=== PATIENT | female | born 1960 | race Caucasian/White ===

== ENCOUNTER → 2020-10-10 | Outpatient (CLI) | payer BC, OTHER ==
[~2020-10-10] MED LIST: ALL DAY ALLERGY10 MG PO; AMBIEN10 MG PO; AMLODIPINE BESYL5 MG PO; CELECOXIB200 MG PO; ELIQUIS 2.5 MG2.5 MG PO; LEVOTHYROXINE88 MCG PO; LIPITOR TAB 1010 MG PO; LISINOPRIL20 MG PO; MELATONIN10 MG PO; MELATONIN3 MG PO; MOBIC7.5 MG PO; OMEPRAZOLE40 MG PO; PERCOCET 10-321 EACH PO; PRINIVIL20 MG PO; SENOKOT-S TABL1 EACH PO; SYNTHROID75 MCG PO; VITAMIN D2 PO; VITAMIN D21250 MCG PO
== END ==
LOC: MAMO 07-04 15:00
DX: Z12.31 Encounter for screening mammogram for malignant neoplasm of breast (principal); Z78.0 Asymptomatic menopausal state
CPT/HCPCS: 77063; 77067

== ENCOUNTER → 2021-03-27 | Outpatient (CLI) | payer BC ==
[~2021-03-27] MED LIST changes: +AUGMENTIN 875-1 EACH PO; +ELIQUIS2.5 MG PO; +ENDOCET 7.5-321 EACH PO
[2021-03-27 13:13] LABS: HEMOGLOBIN 10.7 gm/dl (12.3-15.3); RED BLOOD COUNT 4.86 M/UL (4.00-5.10); WHITE BLOOD COUNT 6.1 K/UL (4.5-11.0)
== END ==
LOC: OPSV2 12:30
PROVIDERS: Orthopaedic Surgery
DX: Z01.818 Encounter for other preprocedural examination (principal); Z88.2 Allergy status to sulfonamides; M17.12 Unilateral primary osteoarthritis, left knee; I10 Essential (primary) hypertension; R94.31 Abnormal electrocardiogram [ECG] [EKG]
CPT/HCPCS: 36415; 80048; 85027; 87081; 87086; 93005

== ENCOUNTER → 2021-04-09 | Outpatient (CLI) | payer BC | LOC: LAB 13:20 | DX: Z01.812 Encounter for preprocedural laboratory examination (principal); M17.12 Unilateral primary osteoarthritis, left knee; Z88.2 Allergy status to sulfonamides | CPT/HCPCS: 36415; 86850; 86900; 86901 ==

== ENCOUNTER 2021-04-10 07:26 | Inpatient (IN) | payer BC ==
[~2021-04-10] VITALS: Ht 157.5 cm; Wt 109.3 kg
[~2021-04-10 07:26] MED LIST changes: -AUGMENTIN 875-1 EACH PO; -ELIQUIS2.5 MG PO; -ENDOCET 7.5-321 EACH PO
[2021-04-10] MEDS ORDERED: ENDOCET 7.5-321 EACH PO (12:00)
[2021-04-10] MEDS ORDERED: ELIQUIS2.5 MG PO (12:00)
[2021-04-11 03:43] LABS: RED BLOOD COUNT 3.98 M/UL (4.00-5.10); WHITE BLOOD COUNT 10.6 K/UL (4.5-11.0)
[2021-04-11 04:15] LABS: BUN/CREATININE RATIO 11 (0-10)
[2021-04-12 06:55] LABS: HEMOGLOBIN 8.5 gm/dl (12.3-15.3); RED BLOOD COUNT 3.8 M/UL (4.00-5.10); WHITE BLOOD COUNT 8.7 K/UL (4.5-11.0)
[2021-04-12 07:06] LABS: BUN/CREATININE RATIO 10 (0-10)
--- NOTE | 2021-04-12 12:22 | NUR ---
ATTEMPTED TO PULL HEMOVAC DRAIN PER ORDER. ATTEMPTED BY TWO NURSES BUT RESISTANCE MET. NOTIFIED DR. ARANDA WHOM ATTEMPTED TO PULL HEMOVAC WITHOUT COMPLETE SUCCESS. PT TO GO TO OR 04/13/21 FOR REMOVAL OF DRAIN. PATIENT AND FAMILY AWARE OF SITUTATION AND PROCEDURE.
[2021-04-13 02:57] LABS: HEMOGLOBIN 8.2 gm/dl (12.3-15.3); RED BLOOD COUNT 3.63 M/UL (4.00-5.10); WHITE BLOOD COUNT 8.3 K/UL (4.5-11.0)
--- NOTE | 2021-04-13 03:00 | NUR ---
PATIENT BECAME VERY SOB MICHELLE 0145 WITH SATS IN THE 70S. PLACED ON 6L NC WITH SATS STILL MID 80S. PATIENT THEN PLACED ON VENTI AT 50% WITH SATS AT 88-90%. NARCAN ADMINISTERED WITH NO INCREASE IN O2 SATS. PATIENT IS NOT STRUGGLING TO BREATH, ONLY SHALLOW BREATHS NOTED. DR LAZO NOTIFIED AND ORDER FOR EKG, CARDIACS, CT PE PROTOCOL; AND COVID SWAB ORDERED.
[2021-04-13 03:16] LABS: BUN/CREATININE RATIO 8 (0-10)
--- NOTE | 2021-04-13 04:48 | NUR ---
SATS 99% ON 50% VENTI. TURNED DOWN TO 35% VENTI.
[2021-04-14 06:24] LABS: WHITE BLOOD COUNT 7.5 K/UL (4.5-11.0)
[2021-04-14 06:57] LABS: BUN/CREATININE RATIO 18 (0-10)
[2021-04-14 07:30] LABS: HEMOGLOBIN 7.4 gm/dl (12.3-15.3); RED BLOOD COUNT 3.17 M/UL (4.00-5.10)
[2021-04-15 05:12] LABS: WHITE BLOOD COUNT 6.4 K/UL (4.5-11.0)
[2021-04-15 05:29] LABS: BUN/CREATININE RATIO 19 (0-10)
[2021-04-15 05:50] LABS: HEMOGLOBIN 6.2 gm/dl (12.3-15.3); RED BLOOD COUNT 2.71 M/UL (4.00-5.10)
--- NOTE | 2021-04-15 13:42 | NUR ---
PATIENT HAD HEMEGLOBIN OF 6.[address] BARRON ORDERD TRANSFUSION. PATIENT HAS RECIEVED [address] LAZO AND [address] LOMBARDI ARE AWARE. LABS FOR HEMEGLOBIN RECHECK SCEDULED FOR 2 HOURS POST AND AT [address] LOMBARDI ORDERED THE ELEQUIS HELD. DRESSING IS CLEAN AND DRY. WILL CONTINUE TO MONITOR.
[2021-04-15 16:08] LABS: HEMOGLOBIN 7.8 gm/dl (12.3-15.3)
[2021-04-15 20:55] LABS: HEMOGLOBIN 7.9 gm/dl (12.3-15.3)
[2021-04-16 05:04] LABS: HEMOGLOBIN 7.9 gm/dl (12.3-15.3); WHITE BLOOD COUNT 6.5 K/UL (4.5-11.0)
[2021-04-16 05:06] LABS: RED BLOOD COUNT 3.48 M/UL (4.00-5.10)
[2021-04-16 05:27] LABS: BUN/CREATININE RATIO 11 (0-10)
[2021-04-16] MEDS ORDERED: AUGMENTIN 875-1 EACH PO (15:33)
== END 2021-04-16 17:06 | disposition home or self-care (01) | DRG 907 ==
LOC: M/S 07:26 → OR 07:26 → EDSTATUS 11:30 → M/S 15:25 → OR 04-12 14:04 → M/S 04-12 14:04
PROVIDERS: Internal Medicine; ADMIT Orthopaedic Surgery
PROC: 0SRD0J9 Replacement of Left Knee Joint with Synthetic Substitute, Cemented, Open Approach (ICD-10-PCS; principal; 2021-04-10 11:30)
PROC: 0SCD0ZZ Extirpation of Matter from Left Knee Joint, Open Approach (ICD-10-PCS; 2021-04-13)
PROC: 30233N1 Transfusion of Nonautologous Red Blood Cells into Peripheral Vein, Percutaneous Approach (ICD-10-PCS; 2021-04-15)
DX: T81.590A Other complications of foreign body accidentally left in body following surgical operation, initial encounter (principal); J69.0 Pneumonitis due to inhalation of food and vomit; J96.01 Acute respiratory failure with hypoxia; Z68.41 Body mass index [BMI] 40.0-44.9, adult; D62 Acute posthemorrhagic anemia; M17.12 Unilateral primary osteoarthritis, left knee; Y83.9 Surgical procedure, unspecified as the cause of abnormal reaction of the patient, or of later complication, without mention of misadventure at the time of the procedure; E66.01 Morbid (severe) obesity due to excess calories; I10 Essential (primary) hypertension; E78.5 Hyperlipidemia, unspecified; K21.9 Gastro-esophageal reflux disease without esophagitis; F41.9 Anxiety disorder, unspecified; E05.90 Thyrotoxicosis, unspecified without thyrotoxic crisis or storm; Z20.822 Contact with and (suspected) exposure to COVID-19; K44.9 Diaphragmatic hernia without obstruction or gangrene; E03.9 Hypothyroidism, unspecified; Z82.49 Family history of ischemic heart disease and other diseases of the circulatory system; Z79.890 Hormone replacement therapy; Z88.2 Allergy status to sulfonamides; Z88.8 Allergy status to other drugs, medicaments and biological substances; Z98.42 Cataract extraction status, left eye; Z98.41 Cataract extraction status, right eye
CPT/HCPCS: 36415; 36430; 73560; 80048; 80202; 82550; 82553; 82728; 82962; 83540; 83550; 84484; 85014; 85018; 85027; 86140; 86850; 86900; 86901; 86920; 87081; 93005; 96374; 97110-GP-CQ; 97116-GP-CQ; 97161; 97164; 97165; 97168; 97530-GP-CQ; 97535; C1776; G0378; J0690; J0692; J1100; J1170; J1200; J1885; J2250; J2270; J2310; J2370; J2405; J2543; J2704; J2795; J3010; J3370; J7030; J7070; J7120; P9016; Q9967; U0002